=== PATIENT | male | born 1985 | race Caucasian/White ===

== ENCOUNTER → 2016-08-14 | Emergency (ER) | payer SELFPAY ==
[~2016-08-14] VITALS: Wt 81.0 kg
--- NOTE | 2016-08-14 19:46 | RADRPT ---
PROCEDURE: CT Brain without contrast. CLINICAL INDICATION: Right inner ear bleeding and headache TECHNIQUE: A CT of the brain was performed on a GE [employer] 64-slice CT scanner utilizing axial imaging from the skull base through the vertex without IV contrast. Multiplanar reformatted images were made. Images were reviewed on a PACS workstation. The CTDIvol is 44.68 mGy and the DLP is 720 .23 mGycm. One of the following 3 dose reduction techniques were used: Automated exposure control; adjustment of the mA and/or kV according to patient size; or use of iterative reconstruction technique. COMPARISON: None available FINDINGS: There is no intracranial hemorrhage, mass effect, or midline shift. No extra-axial fluid collection is seen. The ventricles and sulci are normal in size and configuration. The density of the brain is normal, and the rinaldi white matter differentiation appears well-preserved. The visualized scalp and calvarium are normal. The bilateral orbits are normal. The paranasal sinu ses demonstrate mild right ethmoid sinus disease. the left mastoid air cells are incompletely pneuma tized. The left middle ear cavity is normal. Incomplete pneumatization of the right mastoid air ce lls are also noted. The right middle ear cavity demonstrate soft tissue attenuation in the right mi ddle ear and the right external ear canal. The appearance of ossific densities are noted in the becky ateral external ear canals which may represent osteomas. These findings are compatible with either a right mastoiditis or neoplasm such as cholesteatoma. IMPRESSION: 1. No evidence of acute intracranial hemorrhage, infarcts, or acute intracranial pathology. 2. Soft tissue attenuation in the right middle ear, external ear canal and mastoid air cells. Diff erential to include right otomastoiditis or cholesteatoma. Recommend ENT consultation and temporal bone CT. 3. Incomplete pneumatization of the bilateral mastoid air cells. RPTAT: HDC .Lucretia Boswell MD, Date Time Electronically viewed and signed by .Lucretia Boswell MD, MD on 08/14/2016 19:46 .C/
--- NOTE | 2016-08-14 20:00 | RADRPT ---
PROCEDURE: CT Temporal Bones. CLINICAL INDICATION: Right ear bleeding and pain for 3 months. TECHNIQUE: A CT of the temporal bones was performed on a GE 64-slice CT scanner utilizing high-res olution axial images. Axial and coronal, and multiplanar reformatted images were made. The CTDIvo l is 44.68 mGy and the DLP is 720.23 mGy-cm COMPARISON: Head CT same day FINDINGS: The imaged portions of the paranasal sinuses are remarkable for mild right ethmoid sinus disease. th e imaged portions of the brain are normal. The nasopharynx is normal and symmetric.. Limited evalu ation of the soft tissues of the neck are normal. Right temporal bone: A small amount of cerumen is noted in the right external auditory canal. Soft tissue mass-like atten uation is present in the right external ear canal . Soft tissue attenuation is noted in the right ep i, meso, and hypotympanum. The right mastoid air cells are incompletely pneumatized with soft tissu e attenuation present. The tympanic membrane and scutum is abnormal with blunting of the scutum and nonvisualization of a normal tympanic membrane.The ossicles are abnormal with appearance of destruct ion or erosion present. The right internal auditory canal and otic capsule imaged are normal. The e ntire course of the right facial nerve is normal. Thinning and possible erosion of the right tegmen tympani is noted. Left temporal bone: A small amount of cerumen is noted in the left external auditory canal. The left mastoid air cells a re incompletely pneumatized.. The tympanic membrane and scutum is normal. No soft tissue attenuatio n is noted in the epi, meso,and hypotympanum. The ossicles are in their normal configuration and ali gnment. The left internal auditory canal and otic capsule imaged are normal. The entire course of the left facial nerve is normal. The left tegmen tympani is intact. IMPRESSION: 1. Soft tissue attenuation in the right middle ear, mastoid air cells, and external ear canal with appearance of erosions or destruction of the ossicles and scutum. Differential most compatible with cholesteatoma and less likely aggressive otomastoiditis in this nondiabetic patient. 2. Attenuation of the right tegmen tympani. 3. Incomplete pneumatization of the bilateral mastoid air cells. A call report was made to KARLO Dennis at 08/14/2016 7:59:28 PM following the completion of the ex amination by the undersigned. RPTAT: HDC .Lucretia Boswell MD, Date Time Electronically viewed and signed by .Lucretia Boswell MD, on 08/14/2016 19:59 .C/
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
== END | disposition home or self-care (01) ==
LOC: FTE 18:08
DX: H71.91 Unspecified cholesteatoma, right ear (principal); F17.210 Nicotine dependence, cigarettes, uncomplicated
CPT/HCPCS: 70450; 70480